=== PATIENT | male | born 1950 | race Caucasian/White ===

== ENCOUNTER 2016-08-19 09:01 | Inpatient (IN) | payer OTHER, MEDICARE ==
[~2016-08-19] VITALS: Ht 170.2 cm; Wt 116.5 kg
[2016-08-19] MEDS ORDERED: ASPI81CH CHEW (09:08)
[2016-08-19] MEDS ORDERED: blood pressure med PO (09:08)
[2016-08-19 09:09] VITALS: BP 142/77; PULSE 69; RESP 23; TEMP 97.8; O2SAT 100
--- NOTE | 2016-08-19 09:38 | PD ---
HPI Chief Complaint: Dizziness Time Seen by Provider: 09:16 Travel History International Travel<30 days: No Contact w/Intl Traveler<30days: [place] Country Traveled to: [place] Traveled to known affect area: No History of Present Illness HPI This patient is visiting from [place]. Last night he had dinner with friends and reports drinking 5 beers. This morning he woke up with nausea and lightheadedness. He has generalized weakness. He was feeling so miserable that he called paramedics to bring him here. He is not having any pain. No syncope. No chest pain. Symptoms are moderate to severe in nature. No alleviating factors. Duration 2 hours PFSH Past Medical History Hx Anticoagulant Therapy: Yes (BABY ASPIRIN DAILY ) Hypertension: Yes Triglycerides - High: Yes Social History Alcohol Use: Yes (OCC ) Tobacco Use: No Substance Use: No Allergies-Medications (Allergen,Severity, Reaction): Coded Allergies: No Known Allergies (Unverified , 08/19/16) Reported Meds & Prescriptions Reported Meds & Active Scripts Active Reported [blood pressure med] PO DAILY Aspirin 81 Mg Chew 81 Mg CHEW DAILY Review of Systems General / Constitutional: No: Fever Eyes: No: Visual changes HENT: Positive: Lightheadedness, No: Headaches Cardiovascular: No: Chest Pain or Discomfort Respiratory: No: Shortness of Breath Gastrointestinal: Positive: Nausea, No: Abdominal Pain Genitourinary: No: Dysuria Musculoskeletal: Positive: Weakness, No: Pain Skin: No Rash Neurologic: Positive: Weakness, Dizziness Psychiatric: No: Depression Endocrine: No: Polydipsia Hematologic/Lymphatic: No: Easy Bruising Physical Exam Narrative GENERAL: Well-nourished, well-developed patient with severe lightheadedness and nausea . SKIN: Warm and dry. HEAD: Atraumatic. Normocephalic. EYES: Pupils equal and round. No scleral icterus. No injection or drainage. ENT: No nasal bleeding or discharge. Mucous membranes pink and moist. NECK: Trachea midline. No JVD. CARDIOVASCULAR: Regular rate and rhythm. No murmur appreciated. RESPIRATORY: No accessory muscle use. Clear to auscultation. Breath sounds equal bilaterally. GASTROINTESTINAL: Abdomen soft, non-tender, nondistended. Hepatic and splenic margins not palpable. MUSCULOSKELETAL: No obvious deformities. No clubbing. No cyanosis. No edema. NEUROLOGICAL: Awake and alert. No obvious cranial nerve deficits. Motor grossly within normal limits. Normal speech. PSYCHIATRIC: Appropriate mood and affect; insight and judgment normal. Data Data Last Documented VS Vital Signs Date Time Temp Pulse Resp B/P Pulse Ox O2 Delivery O2 Flow Rate FiO2 08/19/16 09:15 75 100 Nasal Cannula 2 08/19/16 09:09 97.8 23 142/77 Orders Ondansetron Inj (Zofran Inj) (08/19/16 09:45) Sodium Chlor 0.9% 1000 Ml Inj (Ns 1000 M (08/19/16 09:45) Complete Blood Count With Diff (08/19/16 09:33) Basic Metabolic Panel (Bmp) (08/19/16 09:33) Ct Brain W/O Iv Contrast(Rout) (08/19/16 ) Alcohol (Ethanol) (08/19/16 09:33) Iv Access Insert/Monitor (08/19/16 09:33) Labs Laboratory Tests Test 08/19/16 09:35 White Blood Count 13.1 TH/MM3 Red Blood Count 5.02 MIL/MM3 Hemoglobin 15.5 GM/DL Hematocrit 44.4 % Mean Corpuscular Volume 88.3 FL Mean Corpuscular Hemoglobin 30.9 PG Mean Corpuscular Hemoglobin 35.0 % Concent Red Cell Distribution Width 13.6 % Platelet Count 243 TH/MM3 Mean Platelet Volume 9.9 FL Neutrophils (%) (Auto) 65.2 % Lymphocytes (%) (Auto) 23.3 % Monocytes (%) (Auto) 9.3 % Eosinophils (%) (Auto) 1.6 % Basophils (%) (Auto) 0.6 % Neutrophils # (Auto) 8.5 TH/MM3 Lymphocytes # (Auto) 3.0 TH/MM3 Monocytes # (Auto) 1.2 TH/MM3 Eosinophils # (Auto) 0.2 TH/MM3 Basophils # (Auto) 0.1 TH/MM3 CBC Comment DIFF FINAL Differential Comment Sodium Level 134 MEQ/L Potassium Level 2.9 MEQ/L Chloride Level 96 MEQ/L Carbon Dioxide Level 17.9 MEQ/L Anion Gap 20 MEQ/L Blood Urea Nitrogen 14 MG/DL Creatinine 1.24 MG/DL Estimat Glomerular Filtration 58 ML/MIN Rate Random Glucose 228 MG/DL Calcium Level 8.6 MG/DL Ethyl Alcohol Level LESS THAN 3 MG/DL MDM Medical Decision Making Medical Screen Exam Complete: Yes Emergency Medical Condition: Yes Medical Record Reviewed: Yes Differential Diagnosis Hang over, labyrinthitis, dehydration, gastroenteritis, intracranial hemorrhage Narrative Course I have reviewed the patient's electronic medical record. Patient is vacationing , has never been here before. Patient is moaning in the bed looking uncomfortable complaining of lightheadedness and nausea. IV placed I gave him IV Zofran and 1 L normal saline IV CBC shows minimal nonspecific leukocytosis of 13,000 Metabolic profile shows hypokalemia of 2.9 which I am replacing orally on prescription Alcohol level is negative I reviewed his brain CT is normal His vital signs are normal and I don't see any objective findings on exam. On repeat exam he is much improved. He is resting comfortably. May be a variant of hangover or nonspecific viral syndrome/gastroenteritis Zofran and potassium prescribed Diagnosis Primary Impression: Lightheadedness Additional Impressions: Nausea and vomiting in adult Hypokalemia Additional Instructions: The patient was advised to follow up with their physician and return if they worsen. Med/Other Pt SpecificInfo: Prescription(s) given Scripts Ondansetron (Zofran)4 Mg Tab4 Mg PO Q6HR PRN (NAUSEA OR VOMITING) #12 TAB Ref 0 Prov:Ravinder Smith MD 08/19/16 Disposition: 01 DISCHARGE HOME Condition: Stable Ravinder Smith MD Aug 19, 2016 09:38
[2016-08-19] MEDS ORDERED: ONDANSETRON HCL 4 MG/2 ML VIAL IV ONE (09:45)
[2016-08-19] MEDS ORDERED: SODIUM CHLOR 0.9% 1000 ML INJ 1,000 ML IV ONE (09:45)
[2016-08-19 10:01] LABS: AUTOMATED NEUTROPHIL # 8.5 TH/MM3 (1.8-7.7); BASOPHIL # 0.1 TH/MM3 (0-0.2); BASOPHIL % 0.6 % (0.0-2.0); EOSINOPHIL # 0.2 TH/MM3 (0-0.4); EOSINOPHIL % 1.6 % (0.0-4.0); HEMATOCRIT 44.4 % (39.0-51.0); HEMO FLAGS DIFF FINAL; LYMPH % 23.3 % (9.0-44.0); MEAN CELL VOLUME 88.3 FL (80.0-100.0); MEAN CORPUSCULAR HEMOGLOBIN 30.9 PG (27.0-34.0); MONO % 9.3 % (0.0-8.0); NEUT % 65.2 % (16.0-70.0); PLATELET COUNT 243 TH/MM3 (150-450); RED BLOOD COUNT 5.02 MIL/MM3 (4.50-5.90); RED CELL DISTRIBUTION WIDTH 13.6 % (11.6-17.2); WHITE BLOOD COUNT 13.1 TH/MM3 (4.0-11.0)
[2016-08-19 10:13] LABS: ANION GAP 20 MEQ/L (5-15); BICARBONATE 17.9 MEQ/L (21.0-32.0); BLOOD UREA NITROGEN 14 MG/DL (7-18); CHLORIDE 96 MEQ/L (98-107); GLOMERULAR FILTRATION RATE 58 ML/MIN (>89); SODIUM (NA) 134 MEQ/L (136-145)
[2016-08-19 10:18] LABS: POTASSIUM 2.9 MEQ/L (3.5-5.1)
--- NOTE | 2016-08-19 10:30 | RADRPT ---
EXAM DATE/TIME: 08/19/2016 10:04 [facility] COMPARISON: No previous studies available for comparison. INDICATIONS : Dizziness and nausea. RADIATION DOSE: 48.40 CTDIvol (mGy) MEDICAL HISTORY : Hypertension. Anticoagulant therapy. SURGICAL HISTORY : Orthopedic surgery. ENCOUNTER: Initial ACUITY: 1 day PAIN SCALE: 0/10 LOCATION: cranial TECHNIQUE: Multiple contiguous axial images were obtained of the head. Using automated exposure control and adj ustment of the mA and/or kV according to patient size, radiation dose was kept as low as reasonably a chievable to obtain optimal diagnostic quality images. FINDINGS: CEREBRUM: The ventricles are normal for age. No evidence of midline shift, mass lesion, hemorrhage or acute in farction. No extra-axial fluid collections are seen. POSTERIOR FOSSA: The cerebellum and brainstem are intact. The 4th ventricle is midline. The cerebellopontine angle i s unremarkable. EXTRACRANIAL: The visualized portion of the orbits is intact. SKULL: The calvaria is intact. No evidence of skull fracture. CONCLUSION: Negative noncontrast head CT. Luis Montiel MD on August 19, 2016 at 10:28 Board Certified Radiologist. This report was verified electronically.
[2016-08-19] MEDS ORDERED: ZOFR4TAB PO (11:29)
[2016-08-19] MEDS ORDERED: EFFE25TA4 PO (11:32)
--- NOTE | 2016-08-19 13:26 | EKG ---
Date Performed: 08/19/2016 Time Performed: 09:09:50 PTAGE: 66 years EKG: Sinus rhythm ST/T-WAVE ABNORMALITY, CONSIDER ANTEROLATERAL ISCHEMIA ST/T-WAVE ABNORMALITY, CONSIDER INFERIOR ISCH EMIA ABNORMAL ECG NO PREVIOUS TRACING DOCTOR: Jason Love Interpretating Date/Time 08/19/2016 13:25:35
[2016-08-19 13:30] VITALS: BP 148/81; PULSE 68; RESP 19; O2SAT 96
[2016-08-19] MEDS ORDERED: POTASSIUM CHLORIDE INJ 20 MEQ in SODIUM CHLOR 0.9% 1000 ML INJ 1,000 ML IV SCH (14:30)
[2016-08-19] MEDS ORDERED: POTASSIUM CHLOR 20 MEQ PREMIX 100 ML IV ONE (14:30)
--- NOTE | 2016-08-19 14:44 | HHI.HP ---
[facility] Primary Care Physician No Primary Care Physician Admission Diagnosis intract dizzyness,ataxia,inability to stand/ambulate Diagnoses: (1) Lightheadedness Diagnosis: Principal (2) Hypokalemia Diagnosis: Principal Chief Complaint: lightheadedness Travel History International Travel<30 Days: No Contact w/Intl Traveler <30 Da: [place] Country Traveled to: [place] Traveled to Known Affected Are: No History of Present Illness patient is a 66 y/o male with history of hypertension who presented to ER with lightheadedness. he says that he was fine till this morning when he started to feel dizzy. he was sweaty and started to have nausea and vomiting. he says that he wasn't able to keep his balance. he denies any focal weakness, slurred speech , vision changes or headache although he says that ' his head feels funny'. he denies any chest pain or sob. he doesn't recall any similar episodes of dizziness in the past. Review of Systems Constitutional: COMPLAINS OF: Dizziness, DENIES: Fever, Weight loss, Chills, Night Sweats Eyes: DENIES: Blurred vision, Diplopia, Vision loss, Double Vision Ears, nose, mouth, throat: DENIES: Tinnitus, Vertigo, Throat pain, Epistaxis Respiratory: DENIES: Apneas, Cough, Snoring, Wheezing, Hemoptysis, Sputum production, Shortness of breath Cardiovascular: DENIES: Chest pain, Palpitations, Syncope, Dyspnea on Exertion , PND, Lower Extremity Edema, Orthopnea, Claudication Gastrointestinal: COMPLAINS OF: Nausea, Vomiting, DENIES: Abdominal pain, Black stools, Bloody stools, Constipation, Diarrhea, Difficulty Swallowing, Anorexia Genitourinary: DENIES: Urinary frequency, Urgency, Hematuria, Dysuria Musculoskeletal: DENIES: Joint pain, Muscle aches, Stiffness, Joint Swelling Integumentary: DENIES: Rash Neurologic: COMPLAINS OF: Poor Balance, DENIES: Abnormal gait, Headache, Localized weakness, Paresthesias, Seizures, Speech Problems, Tremor Psychiatric: DENIES: Anxiety, Confusion, Mood changes, Depression, Hallucinations, Agitation, Suicidal Ideation, Homicidal Ideation, Delusions Past Family Social History Past Medical History hypertension Past Surgical History back surgery Reported Medications aspirin HCTZ losartan Allergies: Coded Allergies: No Known Allergies (Unverified , 08/19/16) Active Ordered Medications Current Medications Ondansetron HCl 4 mg 4 mg ONCE ONCE IV Last administered on 08/19/16 09:44; Start 08/19/16 at 09:45; Stop 08/19/16 at 09:46; Status DC Sodium Chloride (NS 1000 ml Inj) 1,000 ml @ 2,000 mls/hr Q30M ONCE IV Last administered on 08/19/16 09:44; Start 08/19/16 at 09:45; Stop 08/19/16 at 10:14 ; Status DC Family History not significant. Social History doesn't smoke. drinks occasionally. Physical Exam Vital Signs Vital Signs Date Time Temp Pulse Resp B/P Pulse Ox O2 Delivery O2 Flow Rate FiO2 08/19/16 13:30 68 19 148/81 96 Room Air 08/19/16 09:15 75 100 Nasal Cannula 2 08/19/16 09:09 97.8 69 23 142/77 100 Physical Exam GENERAL: This is a well-nourished, well-developed patient, in no apparent distress. SKIN: No rashes, ecchymoses or lesions. Cool and dry. HEAD: Atraumatic. Normocephalic. No temporal or scalp tenderness. EYES: Pupils equal round and reactive. Extraocular motions intact. No scleral icterus. No injection or drainage. ENT: Nose without bleeding, purulent drainage or septal hematoma. Throat without erythema, tonsillar hypertrophy or exudate. Uvula midline. Airway patent. NECK: Trachea midline. No JVD or lymphadenopathy. Supple, nontender, no meningeal signs. CARDIOVASCULAR: Regular rate and rhythm without murmurs, gallops, or rubs. RESPIRATORY: Clear to auscultation. Breath sounds equal bilaterally. No wheezes , rales, or rhonchi. GASTROINTESTINAL: Abdomen soft, non-tender, nondistended. No hepato-splenomegaly , or palpable masses. No guarding. MUSCULOSKELETAL: Extremities without clubbing, cyanosis, or edema. No joint tenderness, effusion, or edema noted. No calf tenderness. Negative Homans sign bilaterally. NEUROLOGICAL: Awake and alert. Cranial nerves II through XII intact. Motor and sensory grossly within normal limits. Five out of 5 muscle strength in all muscle groups. Normal speech. Laboratory Laboratory Tests Test 08/19/16 09:35 White Blood Count 13.1 Red Blood Count 5.02 Hemoglobin 15.5 Hematocrit 44.4 Mean Corpuscular Volume 88.3 Mean Corpuscular Hemoglobin 30.9 Mean Corpuscular Hemoglobin 35.0 Concent Red Cell Distribution Width 13.6 Platelet Count 243 Mean Platelet Volume 9.9 Neutrophils (%) (Auto) 65.2 Lymphocytes (%) (Auto) 23.3 Monocytes (%) (Auto) 9.3 Eosinophils (%) (Auto) 1.6 Basophils (%) (Auto) 0.6 Neutrophils # (Auto) 8.5 Lymphocytes # (Auto) 3.0 Monocytes # (Auto) 1.2 Eosinophils # (Auto) 0.2 Basophils # (Auto) 0.1 CBC Comment DIFF FINAL Differential Comment Sodium Level 134 Potassium Level 2.9 Chloride Level 96 Carbon Dioxide Level 17.9 Anion Gap 20 Blood Urea Nitrogen 14 Creatinine 1.24 Estimat Glomerular Filtration 58 Rate Random Glucose 228 Calcium Level 8.6 Ethyl Alcohol Level LESS THAN 3 Result Diagram: 08/19/16 0935 08/19/16 0935 Imaging Last Impressions Head CT 08/19/16 0000 Signed Impressions: Service Date/Time: Friday, August 19, 2016 10:04 - CONCLUSION: Negative noncontrast head CT. Luis Montiel MD EKG; sinus rhythm Assessment and Plan Assessment and Plan A/P - dizziness with ataxia- r/o CVA NPO for now- start IV fluid- neuro-checks- will check MRI brain and carotid doppler and consult neurology -hypokalemia; will replace and monitor -hypertension; will resume home BM meds- pending the result of MRI -hyperglycemia with no history of diabetes- check A1c -DVT prophylaxis with SCD's Discussed Condition With ER physician and the patient. Physician Certification 2 Midnight Certification Type: Admission for Inpatient Services Order for Inpatient Services The services are ordered in accordance with Medicare regulations or non- Medicare payer requirements, as applicable. In the case of services not specified as inpatient-only, they are appropriately provided as inpatient services in accordance with the 2-midnight benchmark. Estimated LOS (days): 2 days is the estimated time the patient will need to remain in the hospital, assuming treatment plan goals are met and no additional complications. Post-Hospital Plan: Home Diogenes Iniguez MD Aug 19, 2016 14:44
[2016-08-19] MEDS ORDERED: ONDANSETRON HCL 4 MG/2 ML VIAL IV PUSH PRN (14:45)
[2016-08-19] MEDS ORDERED: ENALAPRILAT 1.25 MG/ML VIAL IV PUSH PRN (15:00)
--- NOTE | 2016-08-19 15:20 | RADRPT ---
EXAM DATE/TIME: 08/19/2016 14:56 [facility] COMPARISON: CT BRAIN W/O CONTRAST, August 19, 2016, 10:04. INDICATIONS : Dizziness. MEDICAL HISTORY : Hypertension. SURGICAL HISTORY : Fusion, cervical. Fusion, lumbar. ENCOUNTER: Initial ACUITY: 1 day PAIN SCORE: 0/10 LOCATION: cranial TECHNIQUE: Multiplanar, multisequence MRI of the brain was performed without contrast. FINDINGS: CEREBRUM: The ventricles are normal for age. No evidence of midline shift, mass lesion, hemorrhage or acute in farction. No extraaxial fluid collections are seen. The pituitary gland and suprasellar cistern are normal in configuration. WHITE MATTER: No significant signal abnormalities are seen in the white matter. POSTERIOR FOSSA: The brainstem is intact. Small old infarct right cerebellum. The 4th ventricle is midline. The cerebe llopontine angle is unremarkable. The cerebellar tonsils are normal in position. DIFFUSION IMAGING: No focal areas of restricted diffusion are seen. No evidence of acute infarction. EXTRACRANIAL: The visualized portions of the orbits and paranasal sinuses are unremarkable. CONCLUSION: 1. Remote right cerebellar infarct. 2. No acute infarction. Gary Iglesias MD on August 19, 2016 at 15:16 Board Certified Radiologist. This report was verified electronically.
[2016-08-19] MEDS ORDERED: GADODIAMIDE PF 287 MG/ML 20 ML VIAL (for RAD MRI) IV ONE (16:14)
--- NOTE | 2016-08-19 16:21 | MB ---
cc: ALONZO CHRISTIAN M.D. DATE OF CONSULTATION 08/19/2016 DATE OF 1950, 66 REASON FOR CONSULTATION Severe dizziness, unable to ambulate. HISTORY OF THE PRESENT ILLNESS This is a 66-year-old man who woke up in his usual state of health today, went to take a shower. After taking his shower he started to experience severe dizziness to the point where he felt like he was going to pass out, unable to walk, nauseated. He denies the room spinning. He feels better right now in the ER laying on his belly on the stretcher then turning over. He states he feels worse when he lays on his back. He describes it as seasickness. He denies any overt weakness in his arms or legs. Denies headache or chest pain, slurred speech. PAST MEDICAL HISTORY He has a past medical history of hypertension. PAST SURGICAL HISTORY Back surgery. MEDICATIONS Home medicines are: 1. Aspirin. 2. Hydrochlorothiazide. 3. Losartan. ALLERGIES None reported. FAMILY HISTORY Noncontributory. SOCIAL HISTORY Does not smoke, occasional alcohol. PHYSICAL EXAMINATION VITAL SIGNS: Her temperature is 97.8, pulse 68, respiratory rate 19, blood pressure 148/81. NECK: Supple. No appreciable bruits. HEART: Regular. NEUROLOGIC: He is awake and alert. He is fluent. Pupils are reactive. There is some end-gaze nystagmus more to the left. The face otherwise symmetrical. Tongue is midline. Motor limited because of his positioning but he moves everything equally. Toes downgoing. Sensory normal. Reflexes 2+. Gait is withheld at this time. LABORATORY DATA His labs, potassium is low at 2.9. Sodium 134, CO2 17.9, glucose 228, calcium 8.6. CBC, white count 13.1. Toxicology is negative for ethanol. IMAGING Did have an MRI of the brain that shows an old stroke in the right cerebellum but nothing acute on diffusion weighted imaging. IMPRESSION Severe dizziness in a 66-year-old man with hypertension, may be a vertebral basilar insufficiency, still may be a vertigo equivalent. Recommend getting an MRA [place] and carotids. Replace electrolytes. I would give him some Antivert to try and help his dizziness. Some Ganeshan p.r.n. Maintain aspirin therapy for now and depending on findings further recommendations will be made. MD SUE Jordan /3:32 PM /4:12 PM
--- NOTE | 2016-08-19 16:22 | RADRPT ---
EXAM DATE/TIME: 08/19/2016 15:46 [facility] COMPARISON: No previous studies available for comparison. INDICATIONS : Dizziness. MEDICAL HISTORY : Hypertension. SURGICAL HISTORY : Fusion, cervical. Fusion, lumbar. ENCOUNTER: Initial ACUITY: 1 day PAIN SCORE: 0/10 LOCATION: cranial Please note a normal MRA of the brain does not entirely exclude the possibility of a small aneurysm, nor the possibility of distal intracranial vessel disease. TECHNIQUE: 3D time of flight MRA was performed. Source images, multiplanar STS MIP, and 3D volume MIP reconstru ctions were reviewed. FINDINGS: There is excellent visualization of the major intracranial arteries out to the second-order branch ve ssels. There is no evidence for aneurysm, vessel truncation or stenosis, and no evidence for vascula r malformation. Small anterior communicating artery. Right-sided posterior communicating artery is se en. Dominant left vertebral artery. Intraluminal irregularities involving the right posterior cerebra l artery. No significant stenosis. No stenosis within the middle or anterior cerebral arteries. CONCLUSION: 1. Atherosclerotic changes involving the right posterior cerebral artery. 2. No significant stenosis or aneurysm. 3. Normal variants as described above. Gary Iglesias MD on August 19, 2016 at 16:16 Board Certified Radiologist. This report was verified electronically.
--- NOTE | 2016-08-19 16:24 | RADRPT ---
EXAM DATE/TIME: 08/19/2016 15:46 [facility] COMPARISON: No previous studies available for comparison. INDICATIONS : Dizziness. CONTRAST: 20 cc Omniscan (gadodiamide) IV MEDICAL HISTORY : Hypertension. SURGICAL HISTORY : Fusion, cervical. Discectomy, lumbar. ENCOUNTER: Initial ACUITY: 1 day PAIN SCORE: 0/10 LOCATION: neck Percent stenosis is calculated using the diameter of the stenotic region over the diameter of the nor mal distal internal carotid artery. TECHNIQUE: Bolus infused MRA of the extracranial circulation was performed using a neurovascular coil. Post pro cessing was performed including rotationg subvolume maximum intensity projections of each carotid art chuck, rotating full volume maximum intensity projections of both carotid arteries, sagittal and ball l sliding thin slab reformations of each carotid artery, and left oblique sliding thin slab reformati on through the aortic arch to include the origin of the arch branch vessels. FINDINGS: AORTIC ARCH: There is a three vessel origin of the great vessels from the aorta. No evidence of ostial narrowing. RIGHT CAROTID: The common carotid artery is intact. Mild plaque formation and mild narrowing of the right proximal i nternal carotid artery in the range of 20 of 30%. The external carotid artery is intact. LEFT CAROTID: The common carotid artery is intact. The carotid bulb has a normal configuration without ulceration or narrowing. The internal carotid artery lumen is smooth without stenosis. The external carotid ar casey is intact. VERTEBRALS: Dominant left vertebral artery. Diminutive right vertebral artery is not well seen No stenotic lesion s are seen. CONCLUSION: 1. Mild narrowing involving the right proximal internal carotid artery. 2. Normal left internal carotid artery. 3. Diminutive right vertebral artery not well visualized. Gary Iglesias MD on August 19, 2016 at 16:21 Board Certified Radiologist. This report was verified electronically.
[2016-08-19] MEDS: MECLIZINE HCL 25 MG TAB PO PRN (16:29)
[2016-08-19] MEDS: NS + KCL 20 MEQ INJ 1,000 ML IV SCH (16:31)
[2016-08-19 17:06] VITALS: BP 149/79; PULSE 64; RESP 16; TEMP 97.3; O2SAT 99
[2016-08-19 17:19] VITALS: PULSE 52
[2016-08-19] MEDS ORDERED: HYDR25TA5 PO (17:19)
[2016-08-19] MEDS ORDERED: LOSA25TA PO (17:19)
[2016-08-19 20:00] VITALS: BP 138/95; PULSE 69; RESP 20; TEMP 97.9; O2SAT 97
[2016-08-19 20:16] VITALS: PULSE 68
[2016-08-20] VITALS (7 sets, daily range): BP systolic 125–163; BP diastolic 66–82; PULSE 58–69; RESP 17–24; TEMP 97.8–100.5; O2SAT 93–96
[2016-08-20] MEDS: NS + KCL 20 MEQ INJ 1,000 ML IV SCH ×2 (01:00→06:21)
[2016-08-20] MEDS: ASPIRIN 81 MG CHEW TAB CHEW SCH (08:23)
[2016-08-20 09:06] LABS: AUTOMATED NEUTROPHIL # 8.3 TH/MM3 (1.8-7.7); BASOPHIL % 0.3 % (0.0-2.0); EOSINOPHIL # 0.1 TH/MM3 (0-0.4); EOSINOPHIL % 1.1 % (0.0-4.0); HEMATOCRIT 38.7 % (39.0-51.0); HEMO FLAGS DIFF FINAL; LYMPH % 14.9 % (9.0-44.0); LYMPHOCYTE # 1.7 TH/MM3 (1.0-4.8); MEAN CELL VOLUME 88.9 FL (80.0-100.0); MEAN CORPUSCULAR HEMOGLOBIN 31.4 PG (27.0-34.0); MEAN CORPUSCULAR HGB CONC 35.4 % (32.0-36.0); MONO % 9.6 % (0.0-8.0); NEUT % 74.1 % (16.0-70.0); PLATELET COUNT 211 TH/MM3 (150-450); RED BLOOD COUNT 4.36 MIL/MM3 (4.50-5.90); RED CELL DISTRIBUTION WIDTH 13.5 % (11.6-17.2); WHITE BLOOD COUNT 11.2 TH/MM3 (4.0-11.0)
[2016-08-20 09:40] LABS: BICARBONATE 27.3 MEQ/L (21.0-32.0); POTASSIUM 3.5 MEQ/L (3.5-5.1)
[2016-08-20] MEDS ORDERED: LOSARTAN 25 MG TAB PO SCH (10:45)
--- NOTE | 2016-08-20 10:49 | HHI.PR ---
Subjective Remarks in no acute distress. although feels slightly better - still with dizziness and somewhat unsteady gait. noted that had a low grade fever earlier today. Objective Vitals Vital Signs Date Time Temp Pulse Resp B/P Pulse Ox O2 Delivery O2 Flow Rate FiO2 08/20/16 08:15 Room Air 08/20/16 08:00 100.5 68 24 134/73 94 08/20/16 04:00 Room Air 08/20/16 04:00 97.8 64 21 163/82 96 08/20/16 01:37 17 08/20/16 00:00 98.1 69 22 131/66 96 08/20/16 00:00 Room Air 08/19/16 20:16 68 08/19/16 20:00 97.9 69 20 138/95 97 08/19/16 20:00 Room Air 08/19/16 17:19 52 08/19/16 17:06 97.3 64 16 149/79 99 08/19/16 13:30 68 19 148/81 96 Room Air I/O 08/19/16 08/19/16 08/19/16 08/20/16 08/20/16 08/20/16 07:00 15:00 23:00 07:00 15:00 23:00 Intake Total 703 ml 826 ml Output Total 600 ml Balance 703 ml 226 ml Intake Oral 240 ml IV Total 463 ml 826 ml Output Urine Total 600 ml # Voids 1 # Bowel Movements 0 Result Diagram: 08/20/16 0802 08/20/16 0802 Imaging Last Impressions Neck Magnetic Resonance Angiography 08/19/16 0000 Signed Impressions: Service Date/Time: Friday, August 19, 2016 15:46 - CONCLUSION: 1. Mild narrowing involving the right proximal internal carotid artery. 2. Normal left internal carotid artery. 3. Diminutive right vertebral artery not well visualized. Gary Iglesias MD Head Magnetic Resonance Angiography 08/19/16 0000 Signed Impressions: Service Date/Time: Friday, August 19, 2016 15:46 - CONCLUSION: 1. Atherosclerotic changes involving the right posterior cerebral artery. 2. No significant stenosis or aneurysm. 3. Normal variants as described above. Gary Iglesias MD Head CT 08/19/16 0000 Signed Impressions: Service Date/Time: Friday, August 19, 2016 10:04 - CONCLUSION: Negative noncontrast head CT. Luis Montiel MD Brain MRI 08/19/16 0000 Signed Impressions: Service Date/Time: Friday, August 19, 2016 14:56 - CONCLUSION: 1. Remote right cerebellar infarct. 2. No acute infarction. Gary Iglesias MD Objective Remarks GENERAL: This is a well-nourished, well-developed patient, in no apparent distress. CARDIOVASCULAR: Regular rate and regular rhythm without murmurs, gallops, or rubs. RESPIRATORY: Clear to auscultation. Breath sounds equal bilaterally. No wheezes , rales, or rhonchi. GASTROINTESTINAL: Abdomen soft, non-tender, nondistended. Normal, active bowel sounds MUSCULOSKELETAL: Extremities without clubbing, cyanosis, or edema. NEURO: Alert & Oriented x4 to person, place, time, situation. Moves all ext x4 Procedures none Medications and IVs Current Medications Ondansetron HCl 4 mg 4 mg ONCE ONCE IV Last administered on 08/19/16 09:44; Start 08/19/16 at 09:45; Stop 08/19/16 at 09:46; Status DC Sodium Chloride 1,000 ml @ 2,000 mls/hr Q30M ONCE IV Last administered on 08/19 09:44; Start 08/19/16 at 09:45; Stop 08/19/16 at 10:14; Status DC Potassium Chloride 100 ml @ 50 mls/hr BOLUS ONCE IV Last administered on 08/19 16:30; Start 08/19/16 at 14:30; Stop 08/19/16 at 16:29; Status DC Potassium Chloride/Sodium Chloride (KCl Inj/NS 1000 ml Inj) 1,010 ml @ 100 mls/ hr Q10H6M IV ; Start 08/19/16 at 14:30; Status Cancel Aspirin (Aspirin Chew) 81 mg DAILY CHEW Last administered on 08/20/16 08:23; Start 08/20/16 at 09:00 Ondansetron HCl 4 mg 4 mg Q8HR PRN IV PUSH NAUSEA; Start 08/19/16 at 14:45 Potassium Chloride/Sodium Chloride (NS + KCl 20 Meq Inj) 1,000 ml @ 100 mls/hr Q10H IV Last administered on 08/20/16 06:21; Start 08/19/16 at 15:00 Enalaprilat (Vasotec Inj) 1.25 mg Q8H PRN IV PUSH SBP > 200 OR DBP > 110; Start 08/19/16 at 15:00 Meclizine HCl (Antivert) 25 mg Q8H PRN PO DIZZINESS Last administered on 16:29; Start 08/19/16 at 15:45 Gadodiamide (Omniscan Pf Inj) 20 ml STK-MED ONCE IV Last administered on 16:14; Start 08/19/16 at 16:14; Stop 08/19/16 at 16:15; Status DC A/P Assessment and Plan - dizziness with ataxia- MRI brain with remote CVA- however with no acute stroke- MRA neck with no significant stenosis- neurology evaluation appreciated. trial of Meclizine- PT consulted. -low grade fever- monitor temps- check UA -hypokalemia; replaced. -hypertension; resumed home BP meds- -hyperglycemia with no history of diabetes- stress-induced?- A1c pending. -DVT prophylaxis with SCD's Discharge Planning patient still with dizziness and unsteady gait- not ready for discharge today. Diogenes Iniguez MD Aug 20, 2016 10:49
[2016-08-20] MEDS: MECLIZINE HCL 25 MG TAB PO PRN (11:14)
[2016-08-20 15:55] LABS: BLOOD, URINE NEG (NEG); COMMENT (UR) CULT NOT INDICATED; CULTURE IF INDICATED CULT NOT INDICATED; GLUCOSE,URINE NEG (NEG); KETONE, URINE NEG (NEG); NITRITE,URINE NEG (NEG); URINE COLOR LIGHT-YELLOW (YELLW/STRAW)
[2016-08-20 16:28] LABS: HEMOGLOBIN A1a 1.1 %; HEMOGLOBIN Ao 85.2 %; HEMOGLOBIN F 0.7 %; HEMOGLOBIN LA1C 2.4 %; HEMOGLOBIN P3 3.6 %
[2016-08-21] VITALS: BP 135/75; PULSE 67; RESP 20; TEMP 99.4; O2SAT 92
[2016-08-21] MEDS: NS + KCL 20 MEQ INJ 1,000 ML IV SCH ×2 (03:49→09:52)
[2016-08-21 04:00] VITALS: BP 151/87; PULSE 70; RESP 20; TEMP 99.1; O2SAT 93
[2016-08-21 08:00] VITALS: BP 208/98; PULSE 73; RESP 24; O2SAT 96
[2016-08-21] MEDS ORDERED: LOSARTAN 25 MG TAB PO SCH (09:00)
[2016-08-21] MEDS: ASPIRIN 81 MG CHEW TAB CHEW SCH (09:51)
--- NOTE | 2016-08-21 11:55 | HHI.PR ---
Subjective Remarks resting comfortably with no distress. no more dizziness. says that he walked in the room with no problems. wants to go home. d/w the RN and no acute issues over night. Objective Vitals Vital Signs Date Time Temp Pulse Resp B/P Pulse Ox O2 Delivery O2 Flow Rate FiO2 08/21/16 08:00 73 24 208/98 96 08/21/16 07:15 96 Room Air 08/21/16 04:00 99.1 70 20 151/87 93 08/21/16 00:00 99.4 67 20 135/75 92 08/21/16 00:00 Room Air 08/20/16 20:00 98.6 58 20 125/67 93 08/20/16 20:00 Room Air 08/20/16 16:00 98.7 62 24 134/78 93 08/20/16 12:00 98.1 65 24 144/80 95 I/O 08/20/16 08/20/16 08/20/16 08/21/16 08/21/16 08/21/16 07:00 15:00 23:00 07:00 15:00 23:00 Intake Total 826 ml 1878 ml 1044 ml 1044 ml Output Total 600 ml 1850 ml 500 ml Balance 226 ml 28 ml 544 ml 1044 ml Intake Oral 1200 ml 360 ml 240 ml IV Total 826 ml 678 ml 684 ml 804 ml Output Urine Total 600 ml 1850 ml 500 ml # Voids 2 # Bowel Movements 0 0 0 Result Diagram: 08/20/16 0802 08/20/16 0802 Imaging Last Impressions Neck Magnetic Resonance Angiography 08/19/16 0000 Signed Impressions: Service Date/Time: Friday, August 19, 2016 15:46 - CONCLUSION: 1. Mild narrowing involving the right proximal internal carotid artery. 2. Normal left internal carotid artery. 3. Diminutive right vertebral artery not well visualized. Gary Iglesias MD Head Magnetic Resonance Angiography 08/19/16 0000 Signed Impressions: Service Date/Time: Friday, August 19, 2016 15:46 - CONCLUSION: 1. Atherosclerotic changes involving the right posterior cerebral artery. 2. No significant stenosis or aneurysm. 3. Normal variants as described above. Gary Iglesias MD Head CT 08/19/16 0000 Signed Impressions: Service Date/Time: Friday, August 19, 2016 10:04 - CONCLUSION: Negative noncontrast head CT. Luis Montiel MD Brain MRI 08/19/16 0000 Signed Impressions: Service Date/Time: Friday, August 19, 2016 14:56 - CONCLUSION: 1. Remote right cerebellar infarct. 2. No acute infarction. Gary Iglesias MD Objective Remarks GENERAL: This is a well-nourished, well-developed patient, in no apparent distress. CARDIOVASCULAR: Regular rate and regular rhythm without murmurs, gallops, or rubs. RESPIRATORY: Clear to auscultation. Breath sounds equal bilaterally. No wheezes , rales, or rhonchi. GASTROINTESTINAL: Abdomen soft, non-tender, nondistended. Normal, active bowel sounds MUSCULOSKELETAL: Extremities without clubbing, cyanosis, or edema. NEURO: Alert & Oriented x4 to person, place, time, situation. Moves all ext x4 Procedures none Medications and IVs Current Medications Ondansetron HCl 4 mg 4 mg ONCE ONCE IV Last administered on 08/19/16 09:44; Start 08/19/16 at 09:45; Stop 08/19/16 at 09:46; Status DC Sodium Chloride 1,000 ml @ 2,000 mls/hr Q30M ONCE IV Last administered on 08/19 09:44; Start 08/19/16 at 09:45; Stop 08/19/16 at 10:14; Status DC Potassium Chloride 100 ml @ 50 mls/hr BOLUS ONCE IV Last administered on 08/19 16:30; Start 08/19/16 at 14:30; Stop 08/19/16 at 16:29; Status DC Potassium Chloride/Sodium Chloride (KCl Inj/NS 1000 ml Inj) 1,010 ml @ 100 mls/ hr Q10H6M IV ; Start 08/19/16 at 14:30; Status Cancel Aspirin (Aspirin Chew) 81 mg DAILY CHEW Last administered on 08/21/16 09:51; Start 08/20/16 at 09:00 Ondansetron HCl 4 mg 4 mg Q8HR PRN IV PUSH NAUSEA; Start 08/19/16 at 14:45 Potassium Chloride/Sodium Chloride (NS + KCl 20 Meq Inj) 1,000 ml @ 100 mls/hr Q10H IV Last administered on 08/21/16 09:52; Start 08/19/16 at 15:00 Enalaprilat (Vasotec Inj) 1.25 mg Q8H PRN IV PUSH SBP > 200 OR DBP > 110; Start 08/19/16 at 15:00 Meclizine HCl (Antivert) 25 mg Q8H PRN PO DIZZINESS Last administered on 11:14; Start 08/19/16 at 15:45 Gadodiamide (Omniscan Pf Inj) 20 ml STK-MED ONCE IV Last administered on 16:14; Start 08/19/16 at 16:14; Stop 08/19/16 at 16:15; Status DC Losartan Potassium (Cozaar) 25 mg DAILY PO ; Start 08/20/16 at 10:45; Stop 08/20 at 10:46; Status DC Losartan Potassium (Cozaar) 25 mg DAILY PO Last administered on 08/21/16 09:51 ; Start 08/21/16 at 09:00 A/P Assessment and Plan - dizziness with ataxia- resolved MRI brain with remote CVA- however with no acute stroke- MRA neck with no significant stenosis- neurology evaluation appreciated. trial of Meclizine- PT consulted. -low grade fever-resolved. -hypokalemia; replaced. -hypertension; resumed home BP meds- -hyperglycemia with no history of diabetes- stress-induced?- A1c 5.6. -DVT prophylaxis with SCD's Discharge Planning dc home today with f/u with pcp. see med list. d/w the patient and RNDiogenes Mistry MD Aug 21, 2016 11:55
[2016-08-21] MEDS ORDERED: MECL-62 PO (11:56)
--- NOTE | 2016-08-21 11:57 | HHI.DS ---
Discharge Summary Admission Date Aug 19, 2016 at 14:36 Discharge Date: Aug 21, 2016 Admitting Diagnosis intract dizzyness,ataxia,inability to stand/ambulate (1) Lightheadedness ICD Code: R42 Diagnosis: Principal (2) Hypokalemia ICD Code: E87.6 Diagnosis: Principal Procedures none Brief History - From Admission patient is a 66 y/o male with history of hypertension who presented to ER with lightheadedness. he says that he was fine till this morning when he started to feel dizzy. he was sweaty and started to have nausea and vomiting. he says that he wasn't able to keep his balance. he denies any focal weakness, slurred speech , vision changes or headache although he says that ' his head feels funny'. he denies any chest pain or sob. he doesn't recall any similar episodes of dizziness in the past. CBC/BMP: 08/20/16 0802 08/20/16 0802 Significant Findings Laboratory Tests Test 08/19/16 08/20/16 09:35 08:02 White Blood Count 13.1 TH/MM3 11.2 TH/MM3 (4.0-11.0) (4.0-11.0) Monocytes (%) (Auto) 9.3 % (0.0-8.0) 9.6 % (0.0-8.0) Neutrophils # (Auto) 8.5 TH/MM3 8.3 TH/MM3 (1.8-7.7) (1.8-7.7) Monocytes # (Auto) 1.2 TH/MM3 1.1 TH/MM3 (0-0.9) (0-0.9) Sodium Level 134 MEQ/L (136-145) Potassium Level 2.9 MEQ/L (3.5-5.1) Chloride Level 96 MEQ/L (98-107) Carbon Dioxide Level 17.9 MEQ/L (21.0-32.0) Anion Gap 20 MEQ/L (5-15) Estimat Glomerular Filtration 58 ML/MIN (>89) 80 ML/MIN (>89) Rate Random Glucose 228 MG/DL (74-106) Red Blood Count 4.36 MIL/MM3 (4.50-5.90) Hematocrit 38.7 % (39.0-51.0) Neutrophils (%) (Auto) 74.1 % (16.0-70.0) Calcium Level 7.9 MG/DL (8.5-10.1) Imaging Last Impressions Neck Magnetic Resonance Angiography 08/19/16 Signed Impressions: Service Date/Time: Friday, August 19, 2016 15:46 - CONCLUSION: 1. Mild narrowing involving the right proximal internal carotid artery. 2. Normal left internal carotid artery. 3. Diminutive right vertebral artery not well visualized. Gary Iglesias MD Head Magnetic Resonance Angiography 08/19/16 Signed Impressions: Service Date/Time: Friday, August 19, 2016 15:46 - CONCLUSION: 1. Atherosclerotic changes involving the right posterior cerebral artery. 2. No significant stenosis or aneurysm. 3. Normal variants as described above. Gary Iglesias MD Head CT 08/19/16 Signed Impressions: Service Date/Time: Friday, August 19, 2016 10:04 - CONCLUSION: Negative noncontrast head CT. Luis Montiel MD Brain MRI 08/19/16 Signed Impressions: Service Date/Time: Friday, August 19, 2016 14:56 - CONCLUSION: 1. Remote right cerebellar infarct. 2. No acute infarction. Gary Iglesias MD PE at Discharge GENERAL: This is a well-nourished, well-developed patient, in no apparent distress. CARDIOVASCULAR: Regular rate and regular rhythm without murmurs, gallops, or rubs. RESPIRATORY: Clear to auscultation. Breath sounds equal bilaterally. No wheezes , rales, or rhonchi. GASTROINTESTINAL: Abdomen soft, non-tender, nondistended. Normal, active bowel sounds MUSCULOSKELETAL: Extremities without clubbing, cyanosis, or edema. NEURO: Alert & Oriented x4 to person, place, time, situation. Moves all ext x4 Hospital Course - dizziness with ataxia- resolved MRI brain with remote CVA- however with no acute stroke- MRA neck with no significant stenosis- neurology evaluation appreciated. trial of Meclizine- PT consulted. -low grade fever-resolved. -hypokalemia; replaced. -hypertension; resumed home BP meds- -hyperglycemia with no history of diabetes- stress-induced?- A1c 5.6. -DVT prophylaxis with SCD's Pt Condition on Discharge: Good Discharge Disposition: Discharge Home Discharge Time: <= 30 minutes Discharge Instructions DIET: Follow Instructions for: Heart Healthy Diet Activities you can perform: Regular-No Restrictions Follow up Referrals: PCP Follow-up New Medications: Meclizine (Meclizine) 25 Mg Tab 25 MG PO Q8H PRN DIZZINESS #10 Ref 0 TAB Continued Medications: Aspirin (Aspirin) 81 Mg Chew 81 MG CHEW DAILY Ref 0 TAB Hydrochlorothiazide (Hydrochlorothiazide) 25 Mg Tab 25 MG PO DAILY #30 Ref 0 TAB Losartan (Losartan) 25 Mg Tab 25 MG PO DAILY Blood Pressure Management #30 Ref 0 TAB ([blood pressure med]) PO DAILY Discontinued Medications: Ondansetron (Zofran) 4 Mg Tab 4 MG PO Q6HR PRN NAUSEA OR VOMITING #12 Ref 0 TAB Potassium Bicarbonate Effervescent (Potassium Bicarbonate Effervescent) 25 Meq Tab 50 MEQ PO ONCE Electrolyte Replacement #2 Ref 0 TAB Diogenes Iniguez MD Aug 21, 2016 11:57
--- NOTE | 2016-08-21 11:57 | HHI.DCPOC ---
Discharge Care Plan Diagnosis: (1) Lightheadedness Your Health Problems Are: Difficulty with ADL Exercise Tolerance Goals to Promote Your Health * To prevent worsening of your condition and complications * To maintain your health at the optimal level Directions to Meet Your Goals Take your medications as prescribed Follow your dietary instruction Follow activity as directed Keep your appointments as scheduled Take your immunizations and boosters as scheduled If your symptoms worsen call your PCP, if no PCP go to Urgent Care Center or Emergency Room Smoking is Dangerous to Your Health. Avoid second hand smoke Call the 24-hour hour crisis hotline for domestic abuse at Diogenes Iniguez MD Aug 21, 2016 11:57
[2016-08-21 12:00] VITALS: BP 148/88; PULSE 64; RESP 28; TEMP 97.7; O2SAT 95
== END 2016-08-21 13:34 | disposition home or self-care (01) | DRG 149 ==
LOC: NEPC 09:01 → NEDA 14:24 → OBSVTOIN 14:36 → N04B 17:00
PROVIDERS: ADMIT Internal Medicine; ATTEND Internal Medicine
DX: R42 Dizziness and giddiness (principal); I10 Essential (primary) hypertension; E87.6 Hypokalemia; R73.9 Hyperglycemia, unspecified
CPT/HCPCS: 70450; 70544; 70548; 70551; 80048; 80320; 81001; 83036; 85025; 93005; 96361; 96374; A9579; J2405; J3480; J7030